=== PATIENT | male | born 1980 | race Caucasian/White ===

== ENCOUNTER 2022-11-05 03:05 | Outpatient (CLI) | payer MEDICAID, SELFPAY | END 2022-11-05 03:06 | disposition home or self-care (01) | LOC: LBO 03:05 | PROVIDERS: Visit Provider Advanced Practice Midwife | DX: Z31.440 Encounter of male for testing for genetic disease carrier status for procreative management; Z01.83 Encounter for blood typing | CPT/HCPCS: 36415; 86880; 86900; 86905 ==